=== PATIENT | female | born 1985 | race African-American/Black ===

== ENCOUNTER 2017-01-08 08:24 | Emergency (ER) | payer MEDICAID ==
[~2017-01-08] VITALS: Ht 157.5 cm; Wt 68.0 kg
[~2017-01-08 08:24] MED LIST: FERR325C PO; IBUP-779 PO; MULT-1116 PO
[2017-01-08 10:17] LABS: CLARITY URINE CLEAR (CLEAR); COLOR URINE DARK YELLOW (YELLOW); GLUCOSE URINE NEGATIVE (NEGATIVE); KETONES URINE NEGATIVE (NEGATIVE); LEUKOCYTE ESTERASE URINE NEGATIVE (NEGATIVE); NITRITE URINE NEGATIVE (NEGATIVE); OCCULT BLOOD URINE NEGATIVE (NEGATIVE); PH URINE 5.5 (4.5-8.0); PROTEIN URINE NEGATIVE (NEGATIVE); SPECIFIC GRAVITY URINE 1.023 (1.005-1.030)
[2017-01-08] MEDS ORDERED: SODIUM CHLORIDE 0.9% 1,000 ML IV ONE (10:42)
[2017-01-08] MEDS ORDERED: ONDANSETRON HCL 4MG/2ML VIAL IV STA (10:42)
[2017-01-08 11:03] LABS: BASOPHILS % 0.7 % (0.0-2.0); EOSINOPHILS % 2.3 % (0.0-5.0); HEMATOCRIT. 40.3 % (36.0-48.0); HEMOGLOBIN. 13.5 g/dL (12.0-16.0); LYMPHOCYTES % 18.5 % (20.0-50.0); MEAN CORPUSCULAR HEMOGLOBIN 27.7 pg (28.0-32.0); MEAN CORPUSCULAR HGB CONC 33.5 g/dL (31.0-37.0); MEAN CORPUSCULAR VOLUME 82.7 fL (81.0-99.0); MONOCYTES % 10.4 % (2.0-8.0); NEUTROPHILS % 68.1 % (40.0-76.0); PLATELET 198 x1000/uL (130-400); RED BLOOD CELL COUNT 4.87 mill/uL (4.2-5.4); RED CELL DISTRIBUTION WIDTH 12.9 % (11.6-14.6); WHITE BLOOD COUNT 7.7 x1000/uL (4.5-11.0)
[2017-01-08 11:10] LABS: PROTHROMBIN TIME 10.8 sec
[2017-01-08 11:13] LABS: ALBUMIN 3.4 g/dL (3.4-5.0); ANION GAP 11; CALCIUM 8.7 mg/dL (8.5-10.1); CARBON DIOXIDE 27 mEq/L (21-32); CHLORIDE 106 mEq/L (98-107); INDEX HEMOLYSI 1 (1-3); INDEX ICTERIC 1 (1-4); INDEX LIPEMIC 1 (1-3); LIPASE 120 IU/L (73-393); UREA NITROGEN BLOOD 7 mg/dL (7-21)
[2017-01-08 11:16] LABS: ALANINE AMINOTRANSFERASE 15 IU/L (13-61); eGFR > 60 mL/min (>60)
[2017-01-08 12:00] VITALS: BP 111/67
== END 2017-01-08 13:53 | disposition home or self-care (01) ==
LOC: ER 09:32
DX: K82.8 Other specified diseases of gallbladder (principal); R19.7 Diarrhea, unspecified; M54.5 Low back pain; Z71.6 Tobacco abuse counseling
CPT/HCPCS: 36415; 76705; 80053; 81003; 81025; 83690; 85025; 85610; 96361; 96374; 99285; J2405; J7030; Z7610; 99406

== ENCOUNTER 2017-06-11 08:51 | Emergency (ER) | payer MEDICAID ==
[~2017-06-11] VITALS: Ht 157.5 cm; Wt 75.0 kg
[2017-06-11 09:22] VITALS: BP 106/62
[2017-06-11] MEDS ORDERED: ACETAMINOPHEN 325MG TABLET PO ONE (09:45)
[2017-06-11 10:07] LABS: CLARITY URINE CLEAR (CLEAR); COLOR URINE YELLOW (YELLOW); GLUCOSE URINE NEGATIVE (NEGATIVE); KETONES URINE NEGATIVE (NEGATIVE); LEUKOCYTE ESTERASE URINE NEGATIVE (NEGATIVE); NITRITE URINE NEGATIVE (NEGATIVE); OCCULT BLOOD URINE NEGATIVE (NEGATIVE); PROTEIN URINE NEGATIVE (NEGATIVE); SPECIFIC GRAVITY URINE 1.024 (1.005-1.030); UROBILINOGEN URINE 0.2 E.U./dL (0.2-1.0)
== END 2017-06-11 13:51 | disposition left against medical advice (07) ==
LOC: ER 10:51
DX: O26.891 Other specified pregnancy related conditions, first trimester (principal); R10.84 Generalized abdominal pain; Z3A.08 8 weeks gestation of pregnancy
CPT/HCPCS: 36415; 76801; 81003; 84702; 99285

== ENCOUNTER 2017-06-13 14:21 | Emergency (ER) | payer MEDICAID ==
[~2017-06-13] VITALS: Ht 157.5 cm; Wt 74.0 kg
[2017-06-13 18:00] VITALS: BP 106/68
== END 2017-06-13 18:26 | disposition home or self-care (01) ==
LOC: ER 16:16
DX: O46.91 Antepartum hemorrhage, unspecified, first trimester (principal); Z3A.08 8 weeks gestation of pregnancy
CPT/HCPCS: 36415; 86850; 86900; 99284

== ENCOUNTER 2017-10-15 10:51 | Observation (INO) | payer MEDICAID ==
[~2017-10-15] VITALS: Ht 165.1 cm; Wt 81.6 kg
[2017-10-15] MEDS ORDERED: DEXT 5%/LACTATED RINGERS 1,000 ML IV SCH (11:45)
[2017-10-15] MEDS ORDERED: PREN1TAB78 PO (12:01)
[2017-10-15 12:04] LABS: CLARITY URINE CLEAR (CLEAR); COLOR URINE YELLOW (YELLOW); KETONES URINE 2+ (NEGATIVE); LEUKOCYTE ESTERASE URINE NEGATIVE (NEGATIVE); NITRITE URINE NEGATIVE (NEGATIVE); OCCULT BLOOD URINE NEGATIVE (NEGATIVE); PROTEIN URINE NEGATIVE (NEGATIVE); SPECIFIC GRAVITY URINE 1.016 (1.005-1.030); UROBILINOGEN URINE 0.2 E.U./dL (0.2-1.0)
[2017-10-15 12:12] LABS: BASOPHILS % 0.2 % (0.0-2.0); EOSINOPHILS % 0.6 % (0.0-5.0); HEMATOCRIT. 33.4 % (36.0-48.0); LYMPHOCYTES % 7.6 % (20.0-50.0); MEAN CORPUSCULAR HEMOGLOBIN 27.4 pg (28.0-32.0); MEAN CORPUSCULAR VOLUME 82.9 fL (81.0-99.0); MONOCYTES % 2.5 % (2.0-8.0); NEUTROPHILS % 89.1 % (40.0-76.0); PLATELET 224 x1000/uL (130-400); RED BLOOD CELL COUNT 4.02 mill/uL (4.2-5.4); RED CELL DISTRIBUTION WIDTH 12.8 % (11.6-14.6)
== END 2017-10-15 13:30 | disposition home or self-care (01) ==
LOC: L&D 10:51
PROVIDERS: ADMIT Obstetrics & Gynecology; ATTEND Obstetrics & Gynecology
DX: O21.2 Late vomiting of pregnancy (principal); Z3A.26 26 weeks gestation of pregnancy
CPT/HCPCS: 36415; 80051; 81003; 85025; 99281; G0378; 96360; 96361